=== PATIENT | male | born 1960 | race Caucasian/White ===

== ENCOUNTER 2020-03-13 19:05 | Emergency (ER) | payer BC, OTHER ==
--- NOTE | 2020-03-13 19:24 | EDM.PDOC ---
ED HPI GENERAL MEDICAL PROBLEM - General Stated Complaint: LACERATION TO HEAD Time Seen by Provider: 03/13/20 19:14 Source of Information: Reports: Patient - History of Present Illness INITIAL COMMENTS - FREE TEXT/NARRATIVE: Senthil is a 60 y/o male who presents to the ER with a laceration to the top of his head. 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 No LOC, but his looked at the laceration and thought he should come in since it was bleeding. [facility] Head Pain Score (Numeric/FACES): 5 - Related Data Allergies Allergy/AdvReac Type Severity Reaction Status Date / Time No Known Allergies Allergy Verified 03/13/20 19:34 Home Meds: Home Meds Aspirin [Halfprin] 81 mg PO DAILY 03/13/20 [History] Dextroamphetamine/Amphetamine [Adderall 20 mg Tablet] 30 mg PO DAILY 03/13/20 [History] Diclofenac Sodium 75 mg PO DAILY 03/13/20 [History] Levothyroxine [Synthroid] 88 mcg PO ACBREAKFAST 03/13/20 [History] Loratadine 10 mg PO DAILY 03/13/20 [History] atorvaSTATin Calcium [Atorvastatin Calcium] 40 mg PO DAILY 03/13/20 [History] traMADol [Ultram] 50 mg PO Q4H PRN 03/13/20 [History] Review of Systems - Review of Systems Review Of Systems: See Below Constitutional: Reports: No Symptoms Eyes: Reports: No Symptoms Ears: Reports: No Symptoms Nose: Reports: No Symptoms Mouth/Throat: Reports: No Symptoms Respiratory: Reports: No Symptoms Cardiovascular: Reports: No Symptoms GI/Abdominal: Reports: No Symptoms Genitourinary: Reports: No Symptoms Musculoskeletal: Reports: No Symptoms Skin: Reports: Other (Laceration to scalp) Neurological: Reports: No Symptoms Psychiatric: Reports: No Symptoms ED EXAM, GENERAL - Physical Exam Exam: See Below General Appearance: Alert, WD/WN, No Apparent Distress (Adult Male) Eye Exam: Bilateral Eye: PERRL Ears: Hearing Grossly Normal Nose: Normal Inspection Throat/Mouth: Normal Voice, No Airway Compromise Head: Normocephalic, Other (Note 2 cm laceration to top of head, dried blood noted in hair, mild oozing of blood noted from the wound.) Neck: Normal Inspection Respiratory/Chest: No Respiratory Distress Cardiovascular: Regular Rate, Rhythm GI/Abdominal: Soft, Non-Tender (Male) Exam: Deferred Rectal (Males) Exam: Deferred Back Exam: Other (Deferred) Extremities: Normal Inspection, Normal Capillary Refill Neurological: Alert, Oriented, CN II-XII Intact, Normal Cognition, Normal Gait Psychiatric: Normal Affect Skin Exam: Warm, Dry, Intact, Normal Color Lymphatic: No Adenopathy ED TRAUMA PROCEDURES - Laceration/Wound Repair [place] Lac/Wound Length In cm: 2 Appearance: Linear, Clean Anesthetic Type: Other (None) Skin Prep: Saline Exploration/Debridement/Repair: Wound Explored, No Foreign Material Found Closed With: Deshler # of Sutures: 4 Sterile Dressing Applied: Nurse Tetanus Status Addressed: Yes Complications: No Progress/Comments: Patient tolerate the procedure well. EBL=minimal Course - Vital Signs Text/Narrative:: 1913 The patient was seen by the DIRECTOR OF QUANTITATIVE RESEARCH. 1924 Monica used to repair the scalp laceration. See Procedure note. Patient was given discharge instructions and left the ER in stable condition. Last Recorded V/S: Last Vital Signs Temp 37.1 C 03/13/20 19:16 Pulse 58 L 03/13/20 19:16 Resp 18 03/13/20 19:16 BP 150/71 H 03/13/20 19:16 Pulse Ox 98 03/13/20 19:16 Departure - Departure Time of Disposition: 19:32 Disposition: Home, Self-Care 01 Condition: Good Clinical Impression: Scalp laceration, Injury - Discharge Information *PRESCRIPTION DRUG MONITORING PROGRAM REVIEWED*: Not Applicable *COPY OF PRESCRIPTION DRUG MONITORING REPORT IN PATIENT FIORDALIZA: Not Applicable Instructions: Laceration Care, Adult, Sutures, Deshler, or Adhesive Wound Cl osure Additional Instructions: -May wash hair with soap and water daily. -For the next 1-2 days apply antibiotic ointment to the laceration. -Watch for any signs of infection including redness, drainage, or swelling and report to your PCP as needed -Make an appt in 5-7 days for staple removal Sepsis Event Note (ED) - Focused Exam Vital Signs: Vital Signs Temp Pulse Resp BP Pulse Ox 03/13/20 19:16 37.1 C 58 L 18 150/71 H 98 - Assessment/Plan Assessment:: 1)Scalp Laceration 2)Accidental Injury Plan: -Staple care reviewed with patient -RTC 7 days for staple removal -Watch for nay sx of infection and report to PCP -Return to the ER as needed
== END 2020-03-13 19:40 | disposition home or self-care (01) ==
LOC: VM.ED 19:05
DX: S01.01XA Laceration without foreign body of scalp, initial encounter (principal); Z79.82 Long term (current) use of aspirin; Z79.899 Other long term (current) drug therapy; W22.8XXA Striking against or struck by other objects, initial encounter
CPT/HCPCS: 12001; 99282-25; 99283